=== PATIENT | female | born 1985 | race American Indian/Alaskan Native ===

== ENCOUNTER 2017-02-18 16:04 | Emergency (ER) | payer MEDICAID ==
[2017-02-18] MEDS ORDERED: NACL 0.9% 1000 ML 1,000 ML IV ONE (16:15)
--- NOTE | 2017-02-18 16:15 | Emergency Department Report ---
Chief Complaint: Nausea/Vomiting/Diarrhea Stated Complaint: NAUSEA/VOMITING/SEIZURES Time Seen by Provider: 02/18/17 16:10 - HPI History of Present Illness: PT is 6 weeks . PT has been vomiting x 1 week. PT has seen packaging machine supplies distributor for this . PT has a hx of epilepsy. PT states sz medication "don't work" - ROS Review of Systems: - sz activity + dark urine - dysuria + n/v - Exam Physical Exam: pt appears nauseated PT alert and appropriate. no sz activity noted. MSE screening note: Focused history and physical exam performed. Due to findings the following was ordered: labs, fluids ED Disposition for MSE Condition: Stable
[2017-02-18 16:51] LABS: Basophils % (Auto) 0.9 % (0.0-1.8); Eosinophils % (Auto) 0.2 % (0.0-4.3); Hematocrit 39.7 % (30.3-42.9); Hemoglobin 12.8 gm/dl (10.1-14.3); Mean Corpuscular HGB Conc 32 % (30-34); Mean Corpuscular Hemoglobin 27 pg (28-32); Mean Corpuscular Volume 83 fl (79-97); Platelet Count 242 K/mm3 (140-440); Red Blood Count 4.79 M/mm3 (3.65-5.03); Red Cell Distribution Width 13.7 % (13.2-15.2); White Blood Count 9.6 K/mm3 (4.5-11.0)
[2017-02-18] MEDS ORDERED: ZOFRAN IV ONE (16:54)
--- NOTE | 2017-02-18 16:55 | Emergency Department Report ---
ED General Adult HPI - General Chief complaint: Nausea/Vomiting/Diarrhea Stated complaint: NAUSEA/VOMITING/SEIZURES Time Seen by Provider: 02/18/17 16:10 Source: patient, RN notes reviewed, old records reviewed Mode of arrival: Wheelchair Limitations: No Limitations - History of Present Illness Initial comments: This is a 31-year-old female. She is previously known to have a history of bipolar disorder and seizure disorder. Patient indicated that she is 6 weeks , and has a history of seizures, and gestational diabetes. Surgical history significant for right-sided salpingectomy. As per verbal report from family to nursing staff, patient's seizures have been present since childhood, and that they are "stress induced." The patient presents to the Hospital today complaining of nausea and vomiting. When I speak to the patient, she answers very softly, and only gives 1 or 2 word answers. The patient indicates that she is not having homicidal and suicidal thoughts, but she is not having abdominal pain. However, the history is very limited, because the patient really does not answer open-ended questions. She does follow some commands. Nursing staff indicates that when they elevate the patient's upper extremity, the patient stops before it hits the stretcher. The patient is unable to describe exacerbating or relieving factors. Family is not currently available at this time for collateral information. I attempted to contact the listed phone numbers to obtain collateral information , and was informed that they were incorrect numbers. -: unknown Radiation: other (per hpi) Quality: other (per hpi) Improves with: other (per hpi) Worsens with: other (per hpi) Associated Symptoms: other (per hpi) - Related Data Previous Rx's Medication Instructions Recorded Last Taken Type Doxylamine/Pyridoxine HCl 1 each PO QHS PRN #30 tablet.dr 02/18/17 Unknown Rx [Kenia Mar 10-10 mg Tablet] Pearl Root [Pearl] 250 mg PO QID PRN #30 capsule 02/18/17 Unknown Rx Nitrofurantoin [place]/M-Cryst 100 mg PO Q12HR #13 capsule 02/18/17 Unknown Rx [Macrobid CAP] Ondansetron [Zofran Odt] 4 mg PO QID PRN #20 tab.rapdis 02/18/17 Unknown Rx Potassium Chloride [K-Dur] 20 meq PO BID #14 tab 02/18/17 Unknown Rx Vit W-Ca,Fe,FA(<1 mg) 1 each PO QDAY #30 tablet 02/18/17 Unknown Rx [ Vitamins] Allergies Allergy/AdvReac Type Severity Reaction Status Date / Time Penicillins Allergy Severe SOB. Verified 11/04/14 18:32 THROAT SWELLS ED Review of Systems ROS: Stated complaint: NAUSEA/VOMITING/SEIZURES Other details as noted in HPI Constitutional: malaise. denies: fever Eyes: denies: vision change ENT: denies: epistaxis Respiratory: denies: cough Cardiovascular: denies: chest pain Gastrointestinal: nausea, vomiting Genitourinary: as per HPI. denies: dysuria Musculoskeletal: myalgia Skin: denies: lesions Neurological: weakness Psychiatric: denies: homicidal thoughts, suicidal thoughts ED Past Medical Hx - Past Medical History Previous Medical History?: Yes Hx Congestive Heart Failure: No Hx Diabetes: Yes (GDM with last ) Hx Seizures: Yes (since childhood. None over last year. stress induced.) Hx Psychiatric Treatment: Yes (BIPOLAR) Hx Asthma: No Hx COPD: No - Surgical History Past Surgical History?: No - Social History Smoking Status: Never Smoker Substance Use Type: None - Medications Home Medications: Home Medications Medication Instructions Recorded Confirmed Last Taken Type Doxylamine/Pyridoxine HCl 1 each PO QHS PRN #30 tablet. 02/18/17 Unknown Rx [Dicdwight Dr 10-10 mg Tablet] Pearl Root [Pearl] 250 mg PO QID PRN #30 capsule 02/18/17 Unknown Rx Nitrofurantoin [place]/M-Cryst 100 mg PO Q12HR #13 capsule 02/18/17 Unknown Rx [Macrobid CAP] Ondansetron [Zofran Odt] 4 mg PO QID PRN #20 tab.rapdis 02/18/17 Unknown Rx Potassium Chloride [K-Dur] 20 meq PO BID #14 tab 02/18/17 Unknown Rx Vit W-Ca,Fe,FA(<1 mg) 1 each PO QDAY #30 tablet 02/18/17 Unknown Rx [ Vitamins] ED Physical Exam - General Limitations: Physical Limitation General appearance: anxious, other (patient is awake. She answers some "yes/no " questions.) - Head Head exam: Present: atraumatic, normocephalic - Eye Eye exam: Present: normal appearance, EOMI - ENT ENT exam: Present: normal exam, normal orophraynx, mucous membranes dry - Neck Neck exam: Present: normal inspection, full ROM. Absent: tenderness, meningismus - Respiratory Respiratory exam: Present: normal lung sounds bilaterally. Absent: respiratory distress, wheezes, rales, rhonchi, stridor, chest wall tenderness, accessory muscle use, decreased breath sounds, prolonged expiratory - Cardiovascular Cardiovascular Exam: Present: tachycardia, normal heart sounds. Absent: systolic murmur, diastolic murmur, rubs, gallop - GI/Abdominal GI/Abdominal exam: Present: soft, normal bowel sounds. Absent: distended, tenderness, guarding, rebound, rigid, pulsatile mass - Extremities Exam Extremities exam: Present: normal inspection, full ROM, normal capillary refill. Absent: tenderness, pedal edema, joint swelling, calf tenderness - Back Exam Back exam: Present: normal inspection, full ROM. Absent: tenderness, CVA tenderness (R), CVA tenderness (L), muscle spasm, paraspinal tenderness, vertebral tenderness - Neurological Exam Neurological exam: Present: alert (there is no facial droop. The tongue is midline. Extraocular movements are intact.), other (patient moves 4 extremities to command, but quite weak week. She indicates that she can perceive sensation in 4 extremities.) - Psychiatric Psychiatric exam: Absent: homicidal ideation, suicidal ideation - Skin Skin exam: Present: warm, dry, intact, normal color. Absent: rash ED Course Vital Signs 02/18/17 02/18/17 02/18/17 16:11 17:05 17:10 Temperature 97.8 F Pulse Rate 103 H Respiratory 16 Rate Blood Pressure 123/79 111/66 Blood Pressure [Left] O2 Sat by Pulse 100 100 100 Oximetry 02/18/17 02/18/17 02/18/17 17:20 17:30 17:40 Temperature Pulse Rate Respiratory Rate Blood Pressure 111/60 117/67 117/67 Blood Pressure [Left] O2 Sat by Pulse 100 100 100 Oximetry 02/18/17 02/18/17 02/18/17 17:50 18:00 18:10 Temperature Pulse Rate Respiratory Rate Blood Pressure 115/82 112/52 112/52 Blood Pressure [Left] O2 Sat by Pulse 85 100 99 Oximetry 02/18/17 02/18/17 02/18/17 18:15 18:20 18:30 Temperature 98.4 F Pulse Rate 72 Respiratory 16 Rate Blood Pressure 106/63 105/63 Blood Pressure 105/63 [Left] O2 Sat by Pulse 100 100 Oximetry 02/18/17 02/18/17 02/18/17 19:05 19:10 19:58 Temperature Pulse Rate Respiratory 16 Rate Blood Pressure 98/64 99/60 Blood Pressure [Left] O2 Sat by Pulse 100 100 100 Oximetry 02/18/17 02/18/17 20:00 21:57 Temperature 98.7 F Pulse Rate 92 H Respiratory 18 Rate Blood Pressure 103/66 Blood Pressure 122/52 [Left] O2 Sat by Pulse 99 99 Oximetry - Reevaluation(s) Reevaluation #1: 02/18/17 17:24 differential diagnosis: Conversion disorder, bipolar disorder, urinary tract infection, dehydration, hyperemesis, nausea and vomiting of , partial seizure, psychogenic nonepileptic form seizure Assessment and plan: 31-year-old female with a presenting complaint of nausea and vomiting. When I speak to the patient, she indicates that she feels weak and that her arms and legs are hurting her. There appears to be a psychiatric component to this presentation. At points during her interview, she does follow her eyes up, but she remains awake the entire time. We will check basic laboratory studies, obtain EKG, an obstetrics ultrasound. Her neurologic exam is nonfocal, I don't believe she requires advanced imaging of her brain at this time. Reevaluation #2: 02/18/17 18:17 patient much more awake and conversant. She indicates she is not taking any medications at this time. She indicates her 's phone number is the following; [phone]. Laboratory studies pending. Urinalysis pending. Ultrasound pending. Reevaluation #3: 02/18/17 20:03 no active vomiting noted. Patient is able to walk without difficulty. Appears quite comfortable. Currently waiting laboratory studies, urinalysis, ultrasound. Reevaluation #4: 02/18/17 21:09 patient is reassessed. Urinalysis is suggestive of urinary tract infection. Ultrasound suggests intrauterine . Patient is tolerating liquid feeds. I have reassessed this patient multiple times. Her mental status and affect had improved dramatically since she's been here. The patient is instructed to discontinue cannabis consumption if she is doing so. She will be discharged with nausea medication, vitamins, Macrobid, potassium supplementation. Return precautions are reviewed. The patient does admit to consuming marijuana, she indicates that she last consumed one week ago. The patient was counseled that consumption of marijuana could have adverse effects on herself and on her . 02/18/17 21:16 ED Medical Decision Making - Lab Data Result diagrams: 02/18/17 16:36 02/18/17 16:36 Vital Signs 02/18/17 16:11 Temperature 97.8 F Pulse Rate 103 H Respiratory 16 Rate Blood Pressure 123/79 O2 Sat by Pulse 100 Oximetry Lab Results 02/18/17 02/18/17 02/18/17 Range/Units 16:36 16:36 16:36 WBC 9.6 (4.5-11.0) K/mm3 RBC 4.79 (3.65-5.03) M/mm3 Hgb 12.8 (10.1-14.3) gm/dl Hct 39.7 (30.3-42.9) % MCV 83 (79-97) fl MCH 27 L (28-32) pg MCHC 32 (30-34) % RDW 13.7 (13.2-15.2) % Plt Count 242 (140-440) K/mm3 Lymph % (Auto) 17.8 (13.4-35.0) % [place] % (Auto) 3.8 (0.0-7.3) % Eos % (Auto) 0.2 (0.0-4.3) % Baso % (Auto) 0.9 (0.0-1.8) % Lymph # 1.7 (1.2-5.4) K/mm3 [place] # 0.4 (0.0-0.8) K/mm3 Eos # 0.0 (0.0-0.4) K/mm3 Baso # 0.1 (0.0-0.1) K/mm3 Seg Neutrophils % 77.3 H (40.0-70.0) % Seg Neutrophils # 7.4 (1.8-7.7) K/mm3 Sodium 138 (137-145) mmol/L Potassium 3.2 L (3.6-5.0) mmol/L Chloride 97.8 L (98-107) mmol/L Carbon Dioxide 17 L (22-30) mmol/L Anion Gap 26 mmol/L BUN 6 L (7-17) mg/dL Creatinine 0.5 L (0.7-1.2) mg/dL Estimated GFR > 60 ml/min BUN/Creatinine Ratio 12.00 % Glucose 113 H (65-100) mg/dL Calcium 9.0 (8.4-10.2) mg/dL Total Bilirubin 0.50 (0.1-1.2) mg/dL AST 13 (5-40) units/L ALT 9 (7-56) units/L Alkaline Phosphatase 35 (35-129) units/L Total Protein 7.3 (6.3-8.2) g/dL Albumin 4.0 (3.9-5) g/dL Albumin/Globulin Ratio 1.2 % Lipase 19 (13-60) units/L HCG, Quant 29466 H (0-4) mIU/mL Blood Type Antibody Screen 02/18/17 Range/Units 17:40 WBC (4.5-11.0) K/mm3 RBC (3.65-5.03) M/mm3 Hgb (10.1-14.3) gm/dl Hct (30.3-42.9) % MCV (79-97) fl MCH (28-32) pg MCHC (30-34) % RDW (13.2-15.2) % Plt Count (140-440) K/mm3 Lymph % (Auto) (13.4-35.0) % [place] % (Auto) (0.0-7.3) % Eos % (Auto) (0.0-4.3) % Baso % (Auto) (0.0-1.8) % Lymph # (1.2-5.4) K/mm3 [place] # (0.0-0.8) K/mm3 Eos # (0.0-0.4) K/mm3 Baso # (0.0-0.1) K/mm3 Seg Neutrophils % (40.0-70.0) % Seg Neutrophils # (1.8-7.7) K/mm3 Sodium (137-145) mmol/L Potassium (3.6-5.0) mmol/L Chloride (98-107) mmol/L Carbon Dioxide (22-30) mmol/L Anion Gap mmol/L BUN (7-17) mg/dL Creatinine (0.7-1.2) mg/dL Estimated GFR ml/min BUN/Creatinine Ratio % Glucose (65-100) mg/dL Calcium (8.4-10.2) mg/dL Total Bilirubin (0.1-1.2) mg/dL AST (5-40) units/L ALT (7-56) units/L Alkaline Phosphatase (35-129) units/L Total Protein (6.3-8.2) g/dL Albumin (3.9-5) g/dL Albumin/Globulin Ratio % Lipase (13-60) units/L HCG, Quant (0-4) mIU/mL Blood Type O POSITIVE Antibody Screen TNR - EKG Data -: EKG Interpreted by Me EKG shows normal: sinus rhythm Rate: normal, tachycardia, bradycardia - EKG Data When compared to previous EKG there are: previous EKG unavailable 02/18/17 18:18 normal sinus, 75 bpm, normal intervals, normal axis, motion artifact, incomplete right bundle branch block, not morphologically consistent with STEMI - Radiology Data Radiology results: report reviewed, image reviewed Ultrasound demonstrated single live intrauterine gestation at 6 weeks and 5 days. No obvious bleeding is noted. cardiac activity is noted. Critical care attestation.: If time is entered above; I have spent that time in minutes in the direct care of this critically ill patient, excluding procedure time. ED Disposition Clinical Impression: UTI (urinary tract infection), Nausea and vomiting during Disposition: DC-01 TO HOME OR SELFCARE Is pt being admited?: No Does the pt Need Aspirin: No Condition: Stable Instructions: Hyperemesis Gravidarum (ED) Additional Instructions: Take the medications as directed. Follow up with an [facility] doctor within the next 7-10 days. Discontinue marijuana consumption if you are consuming this product. This is not healthy for yourself for further . Diet should be advanced as tolerated. Return to the ER right away with fevers, chills, intractable nausea or vomiting, change in mental status, confusion, inability to tolerate liquid feeds. Prescriptions: Doxylamine/Pyridoxine HCl [Kenia Mar 10-10 mg Tablet] 1 each PO QHS PRN #30 tablet. PRN Reason: Nausea Pearl Root [Pearl] 250 mg PO QID PRN #30 capsule PRN Reason: Nausea Nitrofurantoin [place]/M-Cryst [Macrobid CAP] 100 mg PO Q12HR #13 capsule Ondansetron [Zofran Odt] 4 mg PO QID PRN #20 tab.rapdis PRN Reason: Nausea Potassium Chloride [K-Dur] 20 meq PO BID #14 tab Vit W-Ca,Fe,FA(<1 mg) [ Vitamins] 1 each PO QDAY #30 tablet Referrals: PRIMARY CAREMD [Primary Care Provider] - 3-5 Days [facility] [Provider Group] - 3-5 Days
[2017-02-18] MEDS ORDERED: D5/0.45NS 1,000 ML IV SCH ×2 (17:00→18:00)
[2017-02-18 17:32] LABS: Alanine Aminotransferase 9 units/L (7-56); Albumin/Globulin Ratio 1.2 %; Alkaline Phosphatase 35 units/L (35-129); Anion Gap 26 mmol/L; Blood Urea Nitrogen 6 mg/dL (7-17); Carbon Dioxide 17 mmol/L (22-30); Chloride 97.8 mmol/L (98-107); Glucose 113 mg/dL (65-100); Lipase 19 units/L (13-60); Potassium 3.2 mmol/L (3.6-5.0); Sodium 138 mmol/L (137-145); Total Protein 7.3 g/dL (6.3-8.2)
[2017-02-18] MEDS ORDERED: K-DUR PO ONE ×2 (17:55→20:14)
[2017-02-18 19:05] LABS: Magnesium 2.2 mg/dL (1.7-2.3)
[2017-02-18 20:11] LABS: Urine Drugs of Abuse Note Disclamer
--- NOTE | 2017-02-18 20:14 | Ultrasound Report ---
FINAL REPORT EXAM: US OB TRANSVAGINAL HISTORY: n/v TECHNIQUE: Ultrasound obstetrical transabdominal PRIORS: None. FINDINGS: Uterus measures 9.2 x 6.0 x 7.4 centimeters There is gestational sac present within the uterus pole identified in with crown-rump length and 0.8 centimeters corresponding to an estimated gestational age of 6 weeks 5 days. Estimated date of delivery based on ultrasound is October 09, 2017 cardiac activity is present with heart rate of 118 beats per minute The right ovary is 3.2 x 2.6 x 3.6 centimeters. There is a 2.6 centimeter cyst noted within the right ovary most likely corpus luteum Left ovary is 3.3 x 1.7 x 1.8 centimeters. No free fluid identified IMPRESSION: Single live intrauterine gestation estimated at 6 weeks 5 days
--- NOTE | 2017-02-18 20:15 | Ultrasound Report ---
FINAL REPORT EXAM: US OB \T\lt; = 14 WEEKS FETUS HISTORY: n/v TECHNIQUE: Ultrasound obstetrical transabdominal PRIORS: None. FINDINGS: Gestational sac present within the uterus. There is pole crown-rump length of 0.8 centimeters. cardiac activity is present with heart rate of 120 beats per minute no free fluid identified within the cul-de-sac. No myometrial abnormality seen. IMPRESSION: Single live intrauterine gestation Please see report of today's transvaginal exam for further findings
[2017-02-18] MEDS: KCL 10MEQ/100ML 10 MEQ/100 ML BAG IV SCH ×2 (20:20→21:56)
[2017-02-18 20:29] LABS: Bacteria,Urine 1+ /HPF (Negative); Bilirubin,Urine NEG (Negative); Blood,Urine MOD (Negative); Ketones,Urine 20 mg/dL (Negative); Leukocyte Esterase,Urine LG (Negative); Nitrite,Urine NEG (Negative); Protein,Urine <15 mg/dL mg/dL (Negative); Urobilinogen,Urine < 2.0 mg/dL (<2.0)
[2017-02-18] MEDS ORDERED: MACROBID PO ONE (20:48)
[2017-02-18] MEDS ORDERED: REGLAN IV ONE (20:50)
[2017-02-18 21:58] VITALS: BP 122/52
== END 2017-02-18 21:58 | disposition home or self-care (01) ==
LOC: ED 16:04
DX: O23.41 Unspecified infection of urinary tract in pregnancy, first trimester (principal); Z3A.01 Less than 8 weeks gestation of pregnancy
CPT/HCPCS: 36415; 76801; 76817; 80053; 80307; 81001; 82550; 83690; 83735; 84702; 85025; 86850; 86900; 86901; 93005; 93010; 96361; 96374; 96375; 99284; G0480; J2405; J2765; J3480; 80320

== ENCOUNTER 2017-02-28 16:13 | Emergency (ER) | payer MEDICAID ==
[2017-02-28 17:21] LABS: Basophils % (Auto) 0.4 % (0.0-1.8); Hematocrit 37.9 % (30.3-42.9); Hemoglobin 12.2 gm/dl (10.1-14.3); Mean Corpuscular HGB Conc 32 % (30-34); Mean Corpuscular Hemoglobin 27 pg (28-32); Mean Corpuscular Volume 82 fl (79-97); Platelet Count 224 K/mm3 (140-440); Red Cell Distribution Width 13.6 % (13.2-15.2); White Blood Count 13.6 K/mm3 (4.5-11.0)
[2017-02-28 17:32] LABS: Anion Gap 21 mmol/L; BUN/Creatinine Ratio 8.33; Blood Urea Nitrogen 5 mg/dL (7-17); Calcium 9.3 mg/dL (8.4-10.2); Carbon Dioxide 19 mmol/L (22-30); Chloride 100.1 mmol/L (98-107); Glucose 87 mg/dL (65-100); Potassium 3.5 mmol/L (3.6-5.0); Sodium 137 mmol/L (137-145)
[2017-02-28] MEDS ORDERED: NACL 0.9% 1000 ML 1,000 ML IV ONE (20:31)
[2017-02-28 20:56] VITALS: BP 115/82
[2017-02-28 21:00] LABS: Bilirubin,Urine NEG (Negative); Blood,Urine SM (Negative); Ketones,Urine TR mg/dL (Negative); Leukocyte Esterase,Urine TR (Negative); Mucus,Urine FEW /HPF; Nitrite,Urine NEG (Negative); Protein,Urine <15 mg/dL mg/dL (Negative); Urobilinogen,Urine < 2.0 mg/dL (<2.0)
--- NOTE | 2017-02-28 21:10 | Emergency Department Report ---
ED N/V/D HPI - General Chief complaint: Nausea/Vomiting/Diarrhea Stated complaint: 8WKS PREG/NAUSEA/VOMITING Time Seen by Provider: 02/28/17 20:20 Source: family Mode of arrival: Ambulatory Limitations: Other - History of Present Illness Initial comments: 31-year-old female presents to the emergency department complaining of nausea and vomiting. Patient states that she is currently approximately 8 weeks , . She states that she has been having nausea and vomiting for several weeks with this . She states she is having difficulty keeping solids and liquids down. She denies vaginal bleeding, vaginal discharge, or abdominal pain. Patient was seen by her SOFTWARE ASSET MANAGER today and sent to the emergency department. Patient states she has been trying Zofran without relief. She was given samples of Diclegis by her OB, and states that she was able to keep down some liquids. There are no other complaints. MD complaint: nausea, vomiting -: Gradual, week(s) Description of Vomiting: food contents, bilious Associated Abdominal Pain: No Consistency: intermittent Improves with: none Worsens with: none Associated Symptoms: denies other symptoms - Related Data Previous Rx's Medication Instructions Recorded Last Taken Type Doxylamine/Pyridoxine HCl 1 each PO QHS PRN #30 tablet. 02/18/17 Unknown Rx [Kenia Mar 10-10 mg Tablet] Pearl Root [Pearl] 250 mg PO QID PRN #30 capsule 02/18/17 Unknown Rx Nitrofurantoin [place]/M-Cryst 100 mg PO Q12HR #13 capsule 02/18/17 Unknown Rx [Macrobid CAP] Ondansetron [Zofran Odt] 4 mg PO QID PRN #20 tab.rapdis 02/18/17 Unknown Rx Potassium Chloride [K-Dur] 20 meq PO BID #14 tab 02/18/17 Unknown Rx Vit W-Ca,Fe,FA(<1 mg) 1 each PO QDAY #30 tablet 02/18/17 Unknown Rx [ Vitamins] Allergies Allergy/AdvReac Type Severity Reaction Status Date / Time Penicillins Allergy Severe SOB. Verified 11/04/14 18:32 THROAT SWELLS ED Review of Systems ROS: Stated complaint: 8WKS PREG/NAUSEA/VOMITING Other details as noted in HPI Comment: All other systems reviewed and negative Gastrointestinal: nausea, vomiting ED Past Medical Hx - Past Medical History Previous Medical History?: Yes Hx Congestive Heart Failure: No Hx Diabetes: Yes (GDM with last ) Hx Seizures: Yes (stress induced) Hx Psychiatric Treatment: Yes (BIPOLAR) Hx Asthma: No Hx COPD: No - Surgical History Past Surgical History?: Yes Additional Surgical History: Right salpingectomy for ectopic - Family History Family history: no significant - Social History Smoking Status: Unknown if ever smoked Substance Use Type: Other - Medications Home Medications: Home Medications Medication Instructions Recorded Confirmed Last Taken Type Doxylamine/Pyridoxine HCl 1 each PO QHS PRN #30 tablet.dr 02/18/17 Unknown Rx [Diclegis Dr 10-10 mg Tablet] Pearl Root [Pearl] 250 mg PO QID PRN #30 capsule 02/18/17 Unknown Rx Nitrofurantoin [place]/M-Cryst 100 mg PO Q12HR #13 capsule 02/18/17 Unknown Rx [Macrobid CAP] Ondansetron [Zofran Odt] 4 mg PO QID PRN #20 tab.rapdis 02/18/17 Unknown Rx Potassium Chloride [K-Dur] 20 meq PO BID #14 tab 02/18/17 Unknown Rx Vit W-Ca,Fe,FA(<1 mg) 1 each PO QDAY #30 tablet 02/18/17 Unknown Rx [ Vitamins] ED Physical Exam - General Limitations: Other General appearance: alert, in no apparent distress - Head Head exam: Present: atraumatic, normocephalic - Eye Eye exam: Present: normal appearance, PERRL, EOMI - ENT ENT exam: Present: normal exam, normal orophraynx, mucous membranes moist - Neck Neck exam: Present: normal inspection, full ROM. Absent: tenderness - Respiratory Respiratory exam: Present: normal lung sounds bilaterally. Absent: respiratory distress - Cardiovascular Cardiovascular Exam: Present: regular rate, normal rhythm, normal heart sounds - GI/Abdominal GI/Abdominal exam: Present: soft, normal bowel sounds. Absent: distended, tenderness - Extremities Exam Extremities exam: Present: normal inspection, full ROM. Absent: tenderness - Back Exam Back exam: Present: normal inspection, full ROM. Absent: tenderness - Neurological Exam Neurological exam: Present: alert, oriented X3. Absent: motor sensory deficit - Skin Skin exam: Present: warm, dry, intact ED Course Vital Signs 06/02/28/17 02/28/17 16:43 18:37 20:56 Temperature 97.9 F 98.1 F 99.2 F Pulse Rate 99 H 78 76 Respiratory 20 16 18 Rate Blood Pressure 116/71 Blood Pressure 115/82 [Left] Blood Pressure 106/74 [Right] O2 Sat by Pulse 100 100 100 Oximetry ED Medical Decision Making - Lab Data Result diagrams: 02/28/17 17:00 02/28/17 17:00 - Medical Decision Making Lab results reviewed and discussed with the patient. I have spoken with Dr. Perez, SOFTWARE ASSET MANAGER. There is no indication for admission to the hospital for this patient at this time. Patient will be discharged home to follow up with her OB/ ORTHOTICS TECHNICIAN as an outpatient. - Differential Diagnosis hyperemesis gravidarum, dehydration, electrolyte abnormality Critical care attestation.: If time is entered above; I have spent that time in minutes in the direct care of this critically ill patient, excluding procedure time. ED Disposition Clinical Impression: Nausea and vomiting during Disposition: DC-01 TO HOME OR SELFCARE Is pt being admited?: No Condition: Stable Instructions: Acute Nausea and Vomiting (ED) Referrals: FREDERICK COTA DO [Staff Physician] - 3-5 Days Time of Disposition: 22:34
== END 2017-02-28 22:53 | disposition home or self-care (01) ==
LOC: ED 16:13
DX: O21.9 Vomiting of pregnancy, unspecified (principal); O26.891 Other specified pregnancy related conditions, first trimester; R11.0 Nausea; Z3A.08 8 weeks gestation of pregnancy; R56.9 Unspecified convulsions; Z88.0 Allergy status to penicillin; Z86.32 Personal history of gestational diabetes; F31.9 Bipolar disorder, unspecified
CPT/HCPCS: 36415; 80048; 81001; 82962; 85025; 96360; 99283; J7030

== ENCOUNTER 2017-09-26 16:31 | Outpatient (CLI) | payer MEDICAID ==
[2017-09-26 16:54] VITALS: BP 126/84
[2017-09-26] MEDS ORDERED: VISTARIL PO PRN (20:55)
== END 2017-09-26 21:30 | disposition home or self-care (01) ==
LOC: TRG 16:31 → LD 16:42 → TRG 21:30
PROVIDERS: ATTEND Obstetrics & Gynecology
DX: O47.1 False labor at or after 37 completed weeks of gestation (principal); Z3A.38 38 weeks gestation of pregnancy
CPT/HCPCS: Q0177

== ENCOUNTER 2018-11-24 11:37 | Emergency (ER) | payer MEDICAID ==
[2018-11-24 12:11] VITALS: BP 116/68
--- NOTE | 2018-11-24 12:13 | Emergency Department Report ---
Blank Doc - Documentation Documentation: This is a 33-year-old female that presents with left leg pain and swelling. S tess is about 32 . Was seen by OBGYN this morning and was sent to the ED for doppler US to r/o DVT. This initial assessment diagnostic orders/clinical plan/treatment(s) is/are subject to change based on patient's health status, clinical progression and re- assessment by fellow clinical providers in the ED. Further treatment and workup at subsequent clinical providers discretion. Patient/guardians urged not to elope from ED s their condition may be serious if not clinically assessed and managed. Initial orders include: 1-patient sent to [facility] for further evaluation and treatment. 2- Doppler US
--- NOTE | 2018-11-24 15:22 | Emergency Department Report ---
HPI - General Chief Complaint: Extremity Problem,Nontraumatic Time Seen by Provider: 11/24/18 11:59 - HPI HPI: This is a 33-year-old female at about 32 weeks who presents to ED complaining of left leg swelling 2 days. Patient states yesterday she noticed left leg was splinted within the right. Patient states the symptoms resolved in length leg swelling went down but she went to her RN [employer]PL[employer] today is 2 to come to the ER for evaluation.. She denies vaginal bleeding, vaginal discharge, headache, she is of breath,. She reports good movement She received care at [facility] in [place] ED Past Medical Hx - Past Medical History Previous Medical History?: Yes Hx Congestive Heart Failure: No Hx Diabetes: Yes (GDM with last ) Hx Deep Vein Thrombosis: No Hx Renal Disease: No Hx Sickle Cell Disease: No Hx Seizures: Yes Hx Psychiatric Treatment: Yes (BIPOLAR) Hx Asthma: No Hx COPD: No Hx HIV: No - Surgical History Past Surgical History?: Yes Additional Surgical History: Right salpingectomy for ectopic - Social History Smoking Status: Never Smoker - Medications Home Medications: Home Medications Medication Instructions Recorded Confirmed Last Taken Type Doxylamine Succinate/Vit B6 1 each PO QHS PRN #30 tablet. 02/18/17 10/02/17 Unknown Rx [Kenia Mar 10-10 mg Tablet] Pearl Root [Pearl] 250 mg PO QID PRN #30 capsule 02/18/17 10/02/17 Unknown Rx Nitrofurantoin [place]/M-Cryst 100 mg PO Q12HR #13 capsule 02/18/17 10/02/17 Unknown Rx [Macrobid CAP] Ondansetron [Zofran Odt] 4 mg PO QID PRN #20 tab.rapdis 02/18/17 10/02/17 Unknown Rx Potassium Chloride [K-Dur] 20 meq PO BID #14 tab 02/18/17 10/02/17 Unknown Rx Vit Calc,Iron,Folic 1 each PO QDAY #30 tablet 02/18/17 10/02/17 10/02/17 08:00 Rx [ Vitamins] ED Review of Systems ROS: Stated complaint: ULTRASOUND ON LEG Other details as noted in HPI Comment: All other systems reviewed and negative Physical Exam - Physical Exam Vital Signs: Vital Signs 11/24/18 12:09 Temperature 97.8 F Pulse Rate 96 H Respiratory 18 Rate Blood Pressure 116/68 O2 Sat by Pulse 100 Oximetry Physical Exam: GENERAL: Alert and oriented x3, no apparent distress, Normal Gait, atraumatic. HEAD: Head is normocephalic and a-traumatic. LUNGS: Symetrical with respiration, No wheezing, no rales or crackles, CTAB. HEART: S1, S2 present, regular rate and rhythm without murmur, no rubs, no gallops. Non tender to palpation ABDOMEN: Gravid uterus,Positive bowel sounds, soft, and non-distended. Nontender to palpation on all Quadrants, NO CVA tenderness. EXTREMITIES/MUSCULOSKELETAL: No cyanosis, clubbing, rash, lesions or edema. Full ROM bilaterally. UE/LE Pulses 2+ bilaterally. LE and UE 5+ strength bilaterally. NEUROLOGIC: The patient is cooperative with no focal neurologic deficits. Cranial nerves II through XII are grossly intact. SKIN: Warm and dry, No lesions, No ulceration or induration present. ED Course Vital Signs 11/24/18 12:09 Temperature 97.8 F Pulse Rate 96 H Respiratory 18 Rate Blood Pressure 116/68 O2 Sat by Pulse 100 Oximetry ED Medical Decision Making - Radiology Data Radiology results: report reviewed, image reviewed PROCEDURE: VL VENOUS DUPLEX LE LT TECHNIQUE: Ultrasound examination of the left lower extremity was performed to evaluate for DVT. HISTORY: left leg pain PRIORS: None FINDINGS: The common femoral, greater saphenous, femoral, and popliteal veins are well visualized and easily compressible throughout with good color flow. Augmentation is normal at multiple levels from the popliteal to the common femoral vein levels. Examination of the calf veins demonstrate good visualization and compressibility of the peroneal and posterior tibial veins with good color flowthrough out. IMPRESSION: No evidence for DVT identified in the left lower extremity. This document is electronically signed by Karen Youssef MD., November 24 2018 03:19:03 PM ET Transcribed By: [facility] Dictated By: KAREN YOUSSEF MD Electronically Authenticated By: KAREN YOUSSEF MD Signed Date/Time: 11/24/18 1521 - Medical Decision Making 33-year-old female presents at 32 weeks. Shows no signs of clots/dvt. Discussed findings with the patient. Discussed the patient acute ambulating as needed scan. Discussed follow-up with RN [employer] within 2 weeks. Vital signs are normal patient is in no acute distress. Critical care attestation.: If time is entered above; I have spent that time in minutes in the direct care of this critically ill patient, excluding procedure time. ED Disposition Clinical Impression: Leg edema, left Disposition: DC-01 TO HOME OR SELFCARE Is pt being admited?: No Does the pt Need Aspirin: No Condition: Stable Instructions: Leg Edema (ED) Additional Instructions: Make sure to follow up with the RN [employer] as discussed. He do not have a blood clot in her legs. Make sure you are not standing or sitting for prolonged time If you have any worsening symptoms or develop new symptoms please return to ED immediately. Referrals: YANETH MALIK MD [Primary Care Provider] - 3-5 Days Forms: Work/School Release Form(ED) Time of Disposition: 15:40
== END 2018-11-24 16:06 | disposition home or self-care (01) ==
LOC: ED 11:37
DX: O12.03 Gestational edema, third trimester (principal); E11.9 Type 2 diabetes mellitus without complications; F31.9 Bipolar disorder, unspecified; Z3A.32 32 weeks gestation of pregnancy; Z88.0 Allergy status to penicillin; Z79.899 Other long term (current) drug therapy
CPT/HCPCS: 99283

== ENCOUNTER 2018-12-31 11:12 | Inpatient (IN) | payer MEDICAID ==
[2018-12-31] MEDS ORDERED: BRETHINE SUB-Q PRN (14:34)
[2018-12-31] MEDS ORDERED: AMPICILLIN/NS 2 GM/100 ML 2 GM/100 ML BAG IV ONE (14:34)
[2018-12-31] MEDS ORDERED: BRETHINE IVP PRN (14:34)
[2018-12-31] MEDS ORDERED: MINERAL OIL PO PRN (14:34)
[2018-12-31] MEDS ORDERED: NARCAN 0.4 MG/1 ML IV PRN (14:34)
[2018-12-31] MEDS ORDERED: XYLOCAINE 2% INFILTRATI ONE (14:34)
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
[2018-12-31] MEDS ORDERED: PITOCin/NS 20 UNIT/1000ML DRIP 20 UNITS/1,000 ML BAG IV SCH (15:00)
[2018-12-31] MEDS ORDERED: PITOCin/NS 30 UNIT/500ML 30 UNITS/500 ML BAG IV SCH (15:00)
[2018-12-31] MEDS ORDERED: LACTATED RINGERS 1,000 ML IV SCH (15:00)
[2018-12-31] MEDS ORDERED: CLEOCIN 900 MG/50 mL 900 MG/50 ML BAG IV SCH (16:00)
[2018-12-31 16:04] LABS: Hematocrit 33.6 % (30.3-42.9); Hemoglobin 10.5 gm/dl (10.1-14.3); Mean Corpuscular HGB Conc 31 % (30-34); Mean Corpuscular Volume 74 fl (79-97); Platelet Count 322 K/mm3 (140-440); Red Blood Count 4.57 M/mm3 (3.65-5.03); Red Cell Distribution Width 17.4 % (13.2-15.2)
[2018-12-31] MEDS ORDERED: STADOL IV PRN (17:31)
[2018-12-31] MEDS ORDERED: AMPICILLIN/NS 1 GM/50 ML 1 GM/50 ML BAG IV SCH (18:35)
[2018-12-31] MEDS ORDERED: BENADRYL PO PRN (18:38)
[2018-12-31] MEDS ORDERED: MILK OF MAGNESIA PO PRN (18:38)
[2018-12-31] MEDS ORDERED: DULCOLAX PR PRN (18:38)
[2018-12-31] MEDS ORDERED: TUCKS PAD TP PRN (18:38)
[2018-12-31] MEDS ORDERED: LANSINOH TP PRN (18:38)
[2018-12-31] MEDS ORDERED: NORCO 5/325 PO PRN (18:38)
--- NOTE | 2018-12-31 18:45 | Procedure Note ---
OB Delivery Note - Delivery Date of Delivery: 12/31/18 (181) Surgeon: CRISTINA PATIÑO Estimated blood loss: 200cc - Vaginal Delivery presentation: vertex Delivery position: OA Intrapartum events: none Delivery induction: none Delivery augmentation: pitocin Delivery monitor: external FHT, external uterine Route of delivery: Delivery placenta: spontaneous Delivery cord: nuchal cord, 3 umbilical vessels Episiotomy: none Delivery laceration: none Anesthesia: none Delivery comments: of a live 6'6 male over a intact perineum under IV pain control with Apgars of 8 and 9 at 1817 on 12/31/2018. Nuchal cord x 1 easily manually reduced on the perineum prior to delivery of the anterior shoulder. directly to maternal abd/chest, skin to skin contact. Spontaneous delivery of the placenta complete and intact with Gaviria side presenting at 1820. Fundus is firm and midline located 5 below the U. Lochia is scant. Delayed cord clamping and cutting; Cord cut by the Father of the Baby. GBS prophylaxis x 1. Cord blood collected; Placenta discarded. - A at 1 minute: 8 at 5 minutes: 9 Infant Gender: Male (6'6)
[2018-12-31] MEDS ORDERED: SODIUM CHLORIDE FLUSH SYRINGE 10 ML IV NR (19:00)
[2019-01-01] MEDS: IBUPROFEN PO SCH ×4 (01:05→19:43)
[2019-01-01 06:01] LABS: Hematocrit 31.1 % (30.3-42.9); Hemoglobin 9.9 gm/dl (10.1-14.3)
[2019-01-01] MEDS: COLACE PO SCH ×2 (09:10→21:35)
--- NOTE | 2019-01-01 10:21 | Progress Note ---
Assessment and Plan A: PPD#1 s/p Bottle feeding Asymptomatic anemia Stable P: Routine PP care Discharge home today pending Peds Subjective - Subjective Date of service: 01/01/19 Principal diagnosis: PPD#1 s/p Interval history: See H&P and delivery note Patient reports: appetite normal, voiding normally, pain well controlled, flatus, bowel movement, ambulating normally [place]: doing well, bottle feeding Objective - Vital Signs Latest vital signs: Vital Signs Temp Pulse Resp BP BP Pulse Ox 01/01/19 08:17 98.3 F 98 H 18 112/73 100 01/01/19 04:30 98.0 F 88 20 113/70 98 12/31/18 22:00 97.8 F 85 20 110/71 100 12/31/18 21:57 97.8 F 88 20 110/71 100 12/31/18 20:07 97 H 124/59 12/31/18 19:52 91 H 103/53 12/31/18 19:37 95 H 106/57 12/31/18 19:22 95 H 107/51 12/31/18 19:07 100 H 100/54 12/31/18 18:52 100 H 113/57 12/31/18 18:37 94 H 111/55 12/31/18 18:22 105 H 127/67 12/31/18 18:17 62 58 L 12/31/18 18:13 106 H 100 12/31/18 18:08 110 H 100 12/31/18 18:03 104 H 97 12/31/18 17:58 108 H 97 12/31/18 17:53 104 H 97 12/31/18 17:48 117 H 94 12/31/18 17:44 97 H 93 12/31/18 17:43 90 99 12/31/18 17:38 107 H 100 12/31/18 17:35 20 12/31/18 17:33 107 H 99 12/31/18 17:28 102 H 98 12/31/18 17:23 117 H 99 12/31/18 15:16 98.1 F 20 12/31/18 15:03 92 H 123/74 12/31/18 13:56 99 H 125/65 12/31/18 11:35 107 H 155/94 12/31/18 11:34 97.6 F 18 Intake and Output 12/31/18 01/01/19 01/01/19 23:59 07:59 15:59 Intake Total 3.2 Output Total 900 800 Balance -896.8 -800 Intake: IV 3.2 PITOCin/NS 30 UNIT/500ML 3.2 30 units In 500 ml @ 4 mls/hr IV TITR STEVIE Rx#: [id number] Output: Urine 900 800 Void 900 800 Other: Total, Output Amount 900 800 Estimated Blood Loss 200 - Exam Breasts: Present: normal Cardiovascular: Present: Regular rate, Normal S1, Normal S2, No murmurs Lungs: Present: Clear to auscultation, Normal air movement Abdomen: Present: normal appearance, soft, normal bowel sounds. Absent: distention Vulva: both: normal Uterus: Present: firm, fundal height below umbilicus (-1) Extremities: Present: normal Deep Tendon Reflex Grade: Normal +2 - Labs Labs: Abnormal lab results 12/31/18 01/01/19 Range/Units Unknown 05:31 WBC 12.2 H (4.5-11.0) K/mm3 Hgb 9.9 L (10.1-14.3) gm/dl MCV 74 L (79-97) fl MCH 23 L (28-32) pg RDW 17.4 H (13.2-15.2) %
--- NOTE | 2019-01-01 10:23 | Discharge Summary ---
Providers - Providers Date of Admission: 12/31/18 16:16 Date of discharge: 01/01/19 Attending physician: RAFAL SMITH MD Primary care physician: RAFAL SMITH MD Hospitalization Reason for admission: induction of labor Delivery: Procedure details: See delivery note Episiotomy: none Laceration: none Other procedures: none complications: none Discharge diagnosis: IUP at term delivered [place] baby: male Condition at discharge: Good Disposition: DC-01 TO HOME OR SELFCARE Plan - Provider Discharge Summary Activity: routine, no sex for 6 weeks, no heavy lifting 4 weeks, no strenuous exercise Diet: routine Instructions: routine Additional instructions: [] Smoking cessation referral if applicable(refer to patient education folder for contact #) [] Refer to [facility] Booklet Call your doctor immediately for: * Fever > 100.5 * Heavy vaginal bleeding ( >1 pad per hour) * Severe persistent headache * Shortness of breath * Reddened, hot, painful area to leg or breast * Drainage or odor from incision. * Keep incision clean and dry at all times and follow doctor's instructions regarding bathing/showering Asymptomatic anemia: Continue Ferrous sulfate 325mg PO BID - Follow up plan Follow up: RAFAL SMITH MD [Primary Care Provider] - 6 Weeks
[2019-01-02] MEDS: IBUPROFEN PO SCH ×3 (01:25→18:08)
[2019-01-02 16:44] VITALS: BP 116/70
[2019-01-02] MEDS: COLACE PO SCH (18:08)
== END 2019-01-02 20:10 | disposition home or self-care (01) | DRG 775 ==
LOC: TRG 11:12 → LD 16:16 → OB 22:14
PROVIDERS: ADMIT Obstetrics & Gynecology; ATTEND Obstetrics & Gynecology
PROC: 10E0XZZ Delivery of Products of Conception, External Approach (ICD-10-PCS; principal; 2018-12-31)
DX: O42.013 Preterm premature rupture of membranes, onset of labor within 24 hours of rupture, third trimester (principal); O99.354 Diseases of the nervous system complicating childbirth; G40.909 Epilepsy, unspecified, not intractable, without status epilepticus; O69.81X0 Labor and delivery complicated by cord around neck, without compression, not applicable or unspecified; Z3A.36 36 weeks gestation of pregnancy; O90.81 Anemia of the puerperium; Z37.0 Single live birth; D64.9 Anemia, unspecified
CPT/HCPCS: 36415; 59025; 85014; 85018; 85027; 86592; 86850; 86900; 86901; G0378; J0595; J2590; J7120

== ENCOUNTER 2021-04-23 13:34 | Emergency (ER) | payer SELFPAY ==
[2021-04-23 14:11] VITALS: BP 119/69
[2021-04-23] MEDS ORDERED: LORazepam 2 MG/ML VIAL ONE (14:37)
[2021-04-23] MEDS ORDERED: levETIRAcetam 1000 MG/NS 0.75% 1,000 MG/100 ML BAG IV ONE ×2 (14:41→14:42)
--- NOTE | 2021-04-23 14:46 | Emergency Department Report ---
ED Seizure HPI - General Chief Complaint: Seizure Stated Complaint: SEIZURE Time Seen by Provider: 04/23/21 14:41 Source: EMS Mode of arrival: Stretcher Limitations: No Limitations - History of Present Illness Initial Comments: Patient is 36 years old female with history of seizure on Keppra, noncompliant with her medication. Patient also has history of bipolar disorder. Patient brought to the emergency room via EMS for evaluation of breakthrough seizure. Patient is noncompliant with her medication. Patient received Versed by EMS. Patient had 1 episode of seizure witnessed by the charge nurse here. She described her seizure as repetitively moving her head. MD Complaint: seizure, feel seizure coming on -: This morning Description of Episode: loss of consciousness, tonic-clonic movement, post-event confusion Witnessed:: Yes Trauma: No Seizure History: known seizure disorder Place: home Possible Precipitating Event: none Associated Symptoms: denies other symptoms Treatments Prior to Arrival: benzodiazepines - Related Data Previous Rx's Medication Instructions Recorded Last Taken Type Doxylamine Succinate/Vit B6 1 each PO QHS PRN #30 tablet. 02/18/17 Unknown Rx [Kenia Mar 10-10 mg Tablet] Pearl Root [Pearl] 250 mg PO QID PRN #30 capsule 02/18/17 Unknown Rx Nitrofurantoin [place]/M-Cryst 100 mg PO Q12HR #13 capsule 02/18/17 Unknown Rx [Macrobid CAP] Ondansetron [Zofran Odt] 4 mg PO QID PRN #20 tab.rapdis 02/18/17 Unknown Rx Potassium Chloride [K-Dur] 20 meq PO BID #14 tab 02/18/17 Unknown Rx Vit Calc,Iron,Folic 1 each PO QDAY #30 tablet 02/18/17 10/02/17 08:00 Rx [ Vitamins] Allergies Allergy/AdvReac Type Severity Reaction Status Date / Time Penicillins Allergy Severe SOB. Verified 04/23/21 14:11 THROAT SWELLS ED Review of Systems ROS: Stated complaint: SEIZURE Other details as noted in HPI Comment: Unobtainable due to pts medical conditions ED Past Medical Hx - Past Medical History Hx Hypertension: No Hx Congestive Heart Failure: No Hx Diabetes: No Hx Deep Vein Thrombosis: No Hx Renal Disease: No Hx Sickle Cell Disease: No Hx Seizures: No Hx Psychiatric Treatment: Yes (BIPOLAR) Hx Asthma: No Hx COPD: No Hx HIV: No - Surgical History Additional Surgical History: Right salpingectomy for ectopic - Social History Smoking Status: Former Smoker - Medications Home Medications: Home Medications Medication Instructions Recorded Confirmed Last Taken Type Doxylamine Succinate/Vit B6 1 each PO QHS PRN #30 tablet. 02/18/17 10/02/17 Unknown Rx [Diclegis Dr 10-10 mg Tablet] Pearl Root [Pearl] 250 mg PO QID PRN #30 capsule 02/18/17 10/02/17 Unknown Rx Nitrofurantoin [place]/M-Cryst 100 mg PO Q12HR #13 capsule 02/18/17 10/02/17 Unknown Rx [Macrobid CAP] Ondansetron [Zofran Odt] 4 mg PO QID PRN #20 tab.rapdis 02/18/17 10/02/17 Unknown Rx Potassium Chloride [K-Dur] 20 meq PO BID #14 tab 02/18/17 10/02/17 Unknown Rx Vit Calc,Iron,Folic 1 each PO QDAY #30 tablet 02/18/17 10/02/17 10/02/17 08:00 Rx [ Vitamins] ED Physical Exam - General Limitations: No Limitations General appearance: in no apparent distress, postictal - Head Head exam: Present: atraumatic, normocephalic - Eye Eye exam: Present: normal appearance, PERRL - ENT ENT exam: Present: normal exam, normal orophraynx, mucous membranes moist - Neck Neck exam: Present: normal inspection, full ROM. Absent: tenderness, meningismus - Respiratory Respiratory exam: Present: normal lung sounds bilaterally - Cardiovascular Cardiovascular Exam: Present: regular rate, normal rhythm, normal heart sounds - GI/Abdominal GI/Abdominal exam: Present: soft, normal bowel sounds. Absent: distended, tenderness, guarding, rebound, rigid, organomegaly, mass, bruit, pulsatile mass, hernia - Extremities Exam Extremities exam: Present: normal inspection, full ROM, normal capillary refill. Absent: pedal edema, calf tenderness - Back Exam Back exam: Present: normal inspection, full ROM. Absent: CVA tenderness (R), CVA tenderness (L) - Neurological Exam Neurological exam: Present: alert - Psychiatric Psychiatric exam: Present: normal mood - Skin Skin exam: Present: warm, intact, normal color ED Course Vital Signs 04/23/21 14:09 Temperature 98.2 F Pulse Rate 100 H Respiratory 20 Rate Blood Pressure 119/69 [Left] ED Medical Decision Making - Lab Data Result diagrams: 04/23/21 16:51 04/23/21 16:51 - Medical Decision Making Patient is 36 years old female with history of seizure on Keppra, noncompliant with her medication. Patient also has history of bipolar disorder. Patient b rought to the emergency room via EMS for evaluation of breakthrough seizure. Patient is noncompliant with her medication. Patient received Versed by EMS. Patient had 1 episode of seizure witnessed by the charge nurse here. She described her seizure as repetitively moving her head. Patient received Keppra 1 g IV. Labs reviewed and is unremarkable. No seizure activity observed in the ER. Patient given prescription for Keppra and advised to follow-up with her neurologist in the next 2 to 3 days and to return to the ER if she develop any new symptoms. Critical care attestation.: If time is entered above; I have spent that time in minutes in the direct care of this critically ill patient, excluding procedure time. ED Disposition Clinical Impression: Seizure Disposition: 01 HOME / SELF CARE / HOMELESS Is pt being admited?: No Condition: Stable Instructions: Seizure, Adult, [id number] Referrals: MARLENE HIGHTOWER MD [Primary Care Provider] - 3-5 Days DAWNA FRANCIS MD [Referring] - 3-5 Days
[2021-04-23 17:32] LABS: Hematocrit 42.9 % (30.3-42.9); Hemoglobin 14.1 gm/dl (10.1-14.3); Mean Corpuscular HGB Conc 33 % (30-34); Mean Corpuscular Volume 80 fl (79-97); Platelet Count 267 K/mm3 (140-440); Red Blood Count 5.35 M/mm3 (3.65-5.03); Red Cell Distribution Width 14.7 % (13.2-15.2)
[2021-04-23 17:51] LABS: Blood Urea Nitrogen 6 mg/dL (7-17); Calcium 8.9 mg/dL (8.4-10.2); Hemolysis Index 20
[2021-04-23 17:55] LABS: Alanine Aminotransferase 11 units/L (7-56); Albumin 4.4 g/dL (3.9-5)
[2021-04-23 18:01] LABS: Bilirubin,Direct < 0.2 mg/dL (0-0.2)
[2021-04-23 18:02] LABS: BUN/Creatinine Ratio 9
[2021-04-23 22:10] LABS: Total Cells Counted 100
[2021-04-23 22:11] LABS: Platelet Estimate Consistent w Auto; RBC Morphology Normal
== END 2021-04-23 18:56 | disposition home or self-care (01) ==
LOC: ED 13:34
DX: G40.909 Epilepsy, unspecified, not intractable, without status epilepticus (principal); F31.9 Bipolar disorder, unspecified; Z88.0 Allergy status to penicillin; Z87.891 Personal history of nicotine dependence; Z98.890 Other specified postprocedural states
CPT/HCPCS: 36415; 80048; 80076; 84703; 85007; 85025; 96374; 99283; J1953; J2060